=== PATIENT | male | born 1950 | race Caucasian/White ===

== ENCOUNTER → 2017-02-19 | Outpatient (CLI) | payer MEDICARE ==
--- NOTE | 2017-02-20 12:59 | CT ---
EXAM DESCRIPTION: Chest w/Contrast CLINICAL HISTORY: SCREENING FOR MALIGNANT NEOPLASM OF RESPIRATORY TRACT COMPARISON: None. TECHNIQUE: Postcontrast CT images of the chest are obtained. This exam was performed according to our departmental dose-optimization program, which includes automated exposure control, adjustment of the mA and/or kV according to patient size and/or use of iterative reconstruction technique . FINDINGS: Heart is mildly enlarged. There are moderate coronary artery calcifications. Elongation and tortuosity of the thoracic aorta is seen with mild calcific atherosclerotic disease. The ascending thoracic aorta measures 4.2 cm consistent with mild aneurysmal dilatation. There are enlarged mid to lower right paratracheal lymph nodes measuring 9 mm short axis. Left prevascular lymph node is borderline measuring 6 mm. Enlarged right hilar and subcarinal lymph nodes are seen with right hilar lymph node measuring 2 cm and subcarinal lymph node measuring 1.7 cm No significant pleural or pericardial effusion is seen. Visualized portion of the upper abdomen shows no acute findings. The lungs are hyperinflated. There are moderate mostly paraseptal and to a lesser degree centrilobular emphysematous changes to lungs. There is a large partly pleural-based spiculated soft tissue mass in the posterior right upper lobe measuring 4.6 x 3.4 cm. Moderate mostly peripheral interstitial thickening is seen throughout the lungs bilaterally. Osseous structures show no aggressive bony lesions. Moderate disc degenerative changes of the spine are seen. Remote appearing right-sided rib fractures are seen. 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 Recommend tissue sampling. Enlarged right hilar, subcarinal, and right paratracheal lymph nodes are concerning for lymphatic spread of neoplastic process on the its the lateral side. Moderate interstitial fibrotic changes to lungs seen. There are also moderate emphysematous changes to lung seen. Electronically signed by: Yasmani Olivera MD 02/20/2017 12:57 PM CDT
== END | disposition home or self-care (01) ==
LOC: CT 09:24
PROVIDERS: ATTEND General Practice
DX: Z12.2 Encounter for screening for malignant neoplasm of respiratory organs (principal)

== ENCOUNTER → 2017-08-20 | Outpatient (CLI) | payer MEDICARE | LOC: BFHH 14:33 | PROVIDERS: ATTEND General Practice | DX: I10 Essential (primary) hypertension (principal); E83.42 Hypomagnesemia ==

== ENCOUNTER → 2017-08-27 | Outpatient (CLI) | payer MEDICARE | LOC: BFHH 16:16 | PROVIDERS: ATTEND General Practice | DX: I10 Essential (primary) hypertension (principal); C34.11 Malignant neoplasm of upper lobe, right bronchus or lung; E61.2 Magnesium deficiency ==